=== PATIENT | female | born 1995 | race American Indian/Alaskan Native ===

== ENCOUNTER 2016-06-27 20:36 | Emergency (ER) | payer MEDICAID ==
[2016-06-27 22:18] VITALS: BP 135/83
[2016-06-27] MEDS ORDERED: ZOFRAN ODT PO ONE (22:26)
--- NOTE | 2016-06-27 22:26 | Emergency Department Report ---
Chief Complaint: Abdominal Pain Stated Complaint: VOMITING, DIARRHEA, HEADACHE Time Seen by Provider: 06/27/16 22:21 - HPI History of Present Illness: Patient states vomiting and diarrhea x 2 days, headache started today. Vomited x7 today, diarrhea x 4 today. No sick contacts, lmp 06/25/15. Denies abdominal pain at this time, states it has resolved. - ROS Review of Systems: All other systems unremarkable except documentation in HPI - Exam Vital Signs: Vital Signs 06/27/16 22:11 Temperature 99.5 F Pulse Rate 100 H Respiratory 16 Rate Blood Pressure 135/83 O2 Sat by Pulse 100 Oximetry Physical Exam: Gen: Female no apparent distress noted, ambulatory, nontoxic. Cardiovascular: Heart sounds present S1-S2, no murmur, gallop, edema or ectopy noted, 2+ pulses upper and lower extremities Respiratory: Chest symmetry with respirations, lungs clear to auscultate upper and lower lobes, respirations even and unlabored, no rales, rhonchi, crackles noted. Abdomen: bowel sounds present, soft, nondistended, nontender, no rigidity, guarding or rebound tenderness Psych: AxOx3, answers questions appropriately, mood full range, affect normal, normal speech and tone. MSE screening note: Focused history and physical exam performed. Due to findings the following was ordered: Patient seen by provider, will go to fast track for further evaluation. ED Medical Decision Making - Medical Decision Making Patient seen by provider, will go to fast track for further evaluation. ED Disposition for MSE Condition: Stable Instructions: Abdominal Pain (ED)
[2016-06-28 00:02] LABS: Bacteria,Urine 1+ /HPF (Negative); Bilirubin,Urine NEG (Negative); Blood,Urine NEG (Negative); Ketones,Urine NEG (Negative); Leukocyte Esterase,Urine LG (Negative); Mucus,Urine FEW /HPF; Nitrite,Urine NEG (Negative); Protein,Urine <15 mg/dL mg/dL (Negative); Urobilinogen,Urine < 2.0 mg/dL (<2.0)
[2016-06-28 01:57] LABS: Basophils % (Auto) 0.6 % (0.0-1.8); Eosinophils % (Auto) 0.6 % (0.0-4.3); Hematocrit 34.3 % (30.3-42.9); Hemoglobin 11.3 gm/dl (10.1-14.3); Mean Corpuscular HGB Conc 33 % (30-34); Mean Corpuscular Hemoglobin 27 pg (28-32); Mean Corpuscular Volume 81 fl (79-97); Platelet Count 303 K/mm3 (140-440); Red Blood Count 4.23 M/mm3 (3.65-5.03); Red Cell Distribution Width 15.5 % (13.2-15.2); White Blood Count 7.3 K/mm3 (4.5-11.0)
[2016-06-28 02:16] LABS: Alanine Aminotransferase 5 units/L (7-56); Albumin 4.4 g/dL (3.9-5); Albumin/Globulin Ratio 1.4 %; Alkaline Phosphatase 65 units/L (35-129); BUN/Creatinine Ratio 16.66; Bilirubin,Total 0.3 mg/dL (0.1-1.2); Blood Urea Nitrogen 10 mg/dL (7-17); Calcium 9.1 mg/dL (8.4-10.2); Carbon Dioxide 25 mmol/L (22-30); Glucose 83 mg/dL (65-100); Lipase 27 units/L (13-60); Total Protein 7.5 g/dL (6.3-8.2)
[2016-06-28 02:17] LABS: Chloride 101.2 mmol/L (98-107); Potassium 3.5 mmol/L (3.6-5.0); Sodium 139 mmol/L (137-145)
[2016-06-28 02:22] LABS: Anion Gap 16 mmol/L
--- NOTE | 2016-06-28 02:48 | Ultrasound Report ---
FINAL REPORT PROCEDURE: US OB transabdominal TECHNIQUE: Real-time transabdominal sonography of the uterus, placenta, amniotic fluid, adnexa, and fetus was performed with image documentation. Measurements were obtained to determine age/size. M-mode Doppler was used to document heartbeat. HISTORY: abdominal pain and COMPARISON: No prior studies are available for comparison. FINDINGS: CRL: 2.4mm, which corresponds to a gestational age of: 6weeks, 4 days. Yolk Sac: Normal. Embryonic Cardiac Activity: 103 beats per minute Gestational Sac: Normal. There is an adjacent 2.4 centimeter subchorionic hematoma. Right Ovary: 4.3 x 1.8 x 3.6 centimeters. There is a 2 centimeter hemorrhagic cyst. Left Ovary: Not identified. Estimated delivery date: 02/17/2017 Comment: Complete anatomic survey at 18-20 weeks suggested. IMPRESSION: 1. Single living intrauterine gestation at approximately 6 weeks and 4 days 2. EDC by US 02/17/2017. 3. There is a subchorionic hematoma. 4. There is a hemorrhagic corpus luteal cyst in the right ovary.
--- NOTE | 2016-06-28 02:48 | Ultrasound Report ---
FINAL REPORT PROCEDURE: US OB TRANSVAGINAL TECHNIQUE: Real-time transvaginal sonography of the uterus, placenta, amniotic fluid, adnexa, and fetus was performed with image documentation. Measurements were obtained to determine age/size. M-mode Doppler was used to document heartbeat. CPT 03049 HISTORY: abdominal pain and COMPARISON: No prior studies are available for comparison. FINDINGS: CRL: 2.4mm, which corresponds to a gestational age of: 6weeks, 4 days. Yolk Sac: Normal. Embryonic Cardiac Activity: 103 beats per minute Gestational Sac: Normal. There is an adjacent 2.4 centimeter subchorionic hematoma. Right Ovary: 4.3 x 1.8 x 3.6 centimeters. There is a 2 centimeter hemorrhagic cyst. Left Ovary: Not identified. Estimated delivery date: 02/17/2017 Comment: Complete anatomic survey at 18-20 weeks suggested. IMPRESSION: 1. Single living intrauterine gestation at approximately 6 weeks and 4 days 2. EDC by US 02/17/2017. 3. There is a subchorionic hematoma. 4. There is a hemorrhagic corpus luteal cyst in the right ovary.
--- NOTE | 2016-07-02 16:35 | ED Elopement Review ---
ED Pt Elopement review - Results review Lab results: Laboratory Tests 06/27/16 06/28/16 06/28/16 Unknown 01:34 01:34 WBC 7.3 RBC 4.23 Hgb 11.3 Hct 34.3 MCV 81 MCH 27 L MCHC 33 RDW 15.5 H Plt Count 303 Lymph % (Auto) 38.1 H [place] % (Auto) 8.7 H Eos % (Auto) 0.6 Baso % (Auto) 0.6 Lymph # 2.8 [place] # 0.6 Eos # 0.0 Baso # 0.0 Seg Neutrophils % 52.0 Seg Neutrophils # 3.8 Sodium 139 Potassium 3.5 L Chloride 101.2 Carbon Dioxide 25 Anion Gap 16 BUN 10 Creatinine 0.6 L Estimated GFR > 60 BUN/Creatinine Ratio 16.66 Glucose 83 Calcium 9.1 Total Bilirubin 0.3 AST 11 ALT 5 L Alkaline Phosphatase 65 Total Protein 7.5 Albumin 4.4 Albumin/Globulin Ratio 1.4 Lipase 27 HCG, Quant Urine Color Yellow Urine Turbidity Clear Urine pH 6.0 Ur Specific [place] 1.021 Urine Protein <15 mg/dl Urine Glucose (UA) Neg Urine Ketones Neg Urine Blood Neg Urine Nitrite Neg Ur Reducing Substances Not Reportable Urine Bilirubin Neg Urine Ictotest Not Reportable Urine Urobilinogen < 2.0 Ur Leukocyte Esterase Lg Urine WBC (Auto) 59.0 H Urine RBC (Auto) 4.0 U Epithel Cells (Auto) 3.0 Urine Bacteria (Auto) 1+ Urine Mucus Few Urine HCG, Qual Positive A Blood Type Ord Rhogam Gestat Weeks 06/28/16 06/28/16 01:34 01:34 WBC RBC Hgb Hct MCV MCH MCHC RDW Plt Count Lymph % (Auto) [place] % (Auto) Eos % (Auto) Baso % (Auto) Lymph # [place] # Eos # Baso # Seg Neutrophils % Seg Neutrophils # Sodium Potassium Chloride Carbon Dioxide Anion Gap BUN Creatinine Estimated GFR BUN/Creatinine Ratio Glucose Calcium Total Bilirubin AST ALT Alkaline Phosphatase Total Protein Albumin Albumin/Globulin Ratio Lipase HCG, Quant 61956 H Urine Color Urine Turbidity Urine pH Ur Specific [place] Urine Protein Urine Glucose (UA) Urine Ketones Urine Blood Urine Nitrite Ur Reducing Substances Urine Bilirubin Urine Ictotest Urine Urobilinogen Ur Leukocyte Esterase Urine WBC (Auto) Urine RBC (Auto) U Epithel Cells (Auto) Urine Bacteria (Auto) Urine Mucus Urine HCG, Qual Blood Type O POSITIVE Ord Rhogam Gestat Weeks Rh pos - Call Back decision Pt Call Back Decision: Pt to F/U with PMD (UTI)
== END 2016-06-28 01:35 | disposition left against medical advice (07) ==
LOC: ED 20:36
DX: R11.10 Vomiting, unspecified (principal); R19.7 Diarrhea, unspecified; R51 Headache; Z53.21 Procedure and treatment not carried out due to patient leaving prior to being seen by health care provider
CPT/HCPCS: 36415; 76801; 76817; 80053; 81001; 81025; 83690; 84702; 85025; 86900; 86901; Q0162

== ENCOUNTER 2016-07-03 21:33 | Emergency (ER) | payer MEDICAID ==
[2016-07-04 00:10] LABS: Bacteria,Urine 1+ /HPF (Negative); Bilirubin,Urine NEG (Negative); Blood,Urine MOD (Negative); Ketones,Urine 20 mg/dL (Negative); Leukocyte Esterase,Urine LG (Negative); Mucus,Urine 1+ /HPF; Nitrite,Urine NEG (Negative); Protein,Urine <15 mg/dL mg/dL (Negative); Urobilinogen,Urine < 2.0 mg/dL (<2.0)
[2016-07-04 00:17] LABS: Basophils % (Auto) 0.6 % (0.0-1.8); Eosinophils % (Auto) 0.9 % (0.0-4.3); Hematocrit 32.9 % (30.3-42.9); Hemoglobin 11.2 gm/dl (10.1-14.3); Mean Corpuscular HGB Conc 34 % (30-34); Mean Corpuscular Hemoglobin 28 pg (28-32); Mean Corpuscular Volume 82 fl (79-97); Platelet Count 295 K/mm3 (140-440); Red Blood Count 3.99 M/mm3 (3.65-5.03); Red Cell Distribution Width 15.6 % (13.2-15.2); White Blood Count 6.8 K/mm3 (4.5-11.0)
[2016-07-04 04:58] VITALS: BP 124/70
--- NOTE | 2016-07-04 07:14 | ED Elopement Review ---
ED Pt Elopement review - Results review Lab results: Laboratory Tests 07/03/16 07/03/16 07/03/16 23:41 23:52 23:52 WBC 6.8 RBC 3.99 Hgb 11.2 Hct 32.9 MCV 82 MCH 28 MCHC 34 RDW 15.6 H Plt Count 295 Lymph % (Auto) 35.1 H [place] % (Auto) 10.0 H Eos % (Auto) 0.9 Baso % (Auto) 0.6 Lymph # 2.4 [place] # 0.7 Eos # 0.1 Baso # 0.0 Seg Neutrophils % 53.4 Seg Neutrophils # 3.6 HCG, Quant 172006 H Urine Color Yellow Urine Turbidity Slightly-cloudy Urine pH 6.0 Ur Specific [place] 1.018 Urine Protein <15 mg/dl Urine Glucose (UA) Neg Urine Ketones 20 Urine Blood Mod Urine Nitrite Neg Urine Bilirubin Neg Urine Urobilinogen < 2.0 Ur Leukocyte Esterase Lg Urine WBC (Auto) 88.0 H Urine RBC (Auto) 6.0 U Epithel Cells (Auto) 9.0 Urine Bacteria (Auto) 1+ Urine Mucus 1+ Blood Type Antibody Screen 07/03/16 23:52 WBC RBC Hgb Hct MCV MCH MCHC RDW Plt Count Lymph % (Auto) [place] % (Auto) Eos % (Auto) Baso % (Auto) Lymph # [place] # Eos # Baso # Seg Neutrophils % Seg Neutrophils # HCG, Quant Urine Color Urine Turbidity Urine pH Ur Specific [place] Urine Protein Urine Glucose (UA) Urine Ketones Urine Blood Urine Nitrite Urine Bilirubin Urine Urobilinogen Ur Leukocyte Esterase Urine WBC (Auto) Urine RBC (Auto) U Epithel Cells (Auto) Urine Bacteria (Auto) Urine Mucus Blood Type O POSITIVE Antibody Screen Negative - Call Back decision Pt Call Back Decision: Call pt to return to ED [facility] (patient is , with vaginal bleeding, needs ultrasound and has a urinary tract infection needing antibiotics)
== END 2016-07-04 06:03 | disposition left against medical advice (07) ==
LOC: ED 21:33
DX: O46.90 Antepartum hemorrhage, unspecified, unspecified trimester (principal); O21.9 Vomiting of pregnancy, unspecified; Z3A.00 Weeks of gestation of pregnancy not specified; Z53.21 Procedure and treatment not carried out due to patient leaving prior to being seen by health care provider
CPT/HCPCS: 36415; 81001; 84702; 85025; 86850; 86900; 86901

== ENCOUNTER 2016-07-18 20:08 | Emergency (ER) | payer MEDICAID | END 2016-07-18 22:10 | disposition left against medical advice (07) | LOC: ED 20:08 | DX: Z53.21 Procedure and treatment not carried out due to patient leaving prior to being seen by health care provider (principal) ==

== ENCOUNTER 2016-08-21 17:17 | Emergency (ER) | payer MEDICAID ==
[2016-08-21 18:06] VITALS: BP 107/77
== END 2016-08-21 21:50 | disposition left against medical advice (07) ==
LOC: ED 17:17
DX: O26.892 Other specified pregnancy related conditions, second trimester (principal); R42 Dizziness and giddiness; Z3A.14 14 weeks gestation of pregnancy; Z53.21 Procedure and treatment not carried out due to patient leaving prior to being seen by health care provider

== ENCOUNTER 2016-11-08 20:36 | Outpatient (CLI) | payer MEDICAID ==
[2016-11-08] MEDS ORDERED: LACTATED RINGERS 500 ML IV ONE (21:06)
[2016-11-08 21:32] LABS: Bacteria,Urine 1+ /HPF (Negative); Bilirubin,Urine NEG (Negative); Blood,Urine NEG (Negative); Ketones,Urine TR mg/dL (Negative); Leukocyte Esterase,Urine TR (Negative); Mucus,Urine 1+ /HPF; Nitrite,Urine NEG (Negative); WBC,Urine < 1.0 /HPF (0.0-6.0)
[2016-11-08] MEDS ORDERED: TYLENOL PO ONE (21:42)
[2016-11-08 23:04] VITALS: BP 124/85
--- NOTE | 2016-11-08 23:21 | Ultrasound Report ---
FINAL REPORT EXAM: US OB LIMITED HISTORY: fall last night; placenta COMPARISONS: 06/28/2016 FINDINGS: Limited transabdominal grayscale, color Doppler and M-mode ultrasound evaluation of the 2nd/3rd trimester placenta Single living intrauterine with recorded cardiac activity of 155 beats per minute. Amniotic fluid volume is subjectively normal. Posterior placenta is without retroplacental hemorrhage or significant marginal cyst formation or other abnormality. IMPRESSION: Single living intrauterine . No focal placental abnormality. Consider additional imaging for worsening/persistent symptoms.
[2016-11-08] MEDS ORDERED: ZOFRAN IV ONE (23:22)
== END 2016-11-08 23:44 | disposition home or self-care (01) ==
LOC: TRG 20:36
PROVIDERS: ATTEND Obstetrics & Gynecology
DX: O26.892 Other specified pregnancy related conditions, second trimester (principal); Z3A.25 25 weeks gestation of pregnancy
CPT/HCPCS: 59025; 76815; 81001; 96360; 96374; J2405; J7120

== ENCOUNTER 2017-02-08 20:03 | Inpatient (IN) | payer MEDICAID ==
[2017-02-08 21:34] LABS: Hematocrit 26.3 % (30.3-42.9); Hemoglobin 8.1 gm/dl (10.1-14.3); Mean Corpuscular HGB Conc 31 % (30-34); Mean Corpuscular Hemoglobin 22 pg (28-32); Mean Corpuscular Volume 73 fl (79-97); Platelet Count 232 K/mm3 (140-440); Red Blood Count 3.61 M/mm3 (3.65-5.03); Red Cell Distribution Width 16.1 % (13.2-15.2); White Blood Count 8.5 K/mm3 (4.5-11.0)
[2017-02-08] MEDS ORDERED: PITOCin/NS 30 UNIT/500ML 30,000 MILLIUNITS/500 ML BAG IV ONE (21:45)
[2017-02-08] MEDS ORDERED: SUBLIMAZE IV PRN (21:46)
[2017-02-08] MEDS ORDERED: STADOL IV PRN (21:47)
[2017-02-08] MEDS ORDERED: LACTATED RINGERS 1,000 ML IV SCH (22:00)
--- NOTE | 2017-02-09 02:07 | History and Physical Report ---
History of Present Illness Date of examination: 02/09/17 History of present illness: 21 yo first trimester EDC 02/16/17 @ 39 weeks gestation presented to triage with SROM clear fluid @ 1945. First trimester entry into care at 7 weeks gestation. course complicated by hyperemesis with admission 07/13 for hydration, also positive for trichomonas with negative [place], +HSV2 with Valtrex at 36 weeks, +GBS UTI with negative [place], and iron BID. Past History Past Medical History: seizure (last seizure at 10 yo), other (anemia) Past Surgical History: tonsillectomy TECHNICAL ASSISTANT History: herpes, trichomonas Family/Genetic History: diabetes, heart disease, hypertension Social history: no significant social history, single - Obstetrical History Expected Date of Delivery: 02/16/17 Actual Gestation: 39 Week(s) 0 Day(s) : 6 Para: 3 Hx # Term Pregnancies: 3 Number of Pregnancies: 0 Induced : 2 Number of Living Children: 3 Medications and Allergies Allergies Allergy/AdvReac Type Severity Reaction Status Date / Time morphine Allergy Itching Verified 06/27/16 22:10 Home Medications Medication Instructions Recorded Confirmed Last Taken Type Vit-Fe Fumar-FA [ 1 tab PO QDAY 11/08/16 11/08/16 11/07/16 History Vitamin] Active Meds: Active Medications Butorphanol Tartrate (Stadol) 2 mg IV Q2H PRN PRN Reason: Labor Pain Fentanyl (Sublimaze) 100 mcg IV Q2HR PRN PRN Reason: Pain Lactated Ringer's (Lactated Ringers) 1,000 mls @ 125 mls/hr IV DIRECT JOSUE Last Admin: 02/08/17 23:40 Dose: 125 mls/hr Oxytocin/Sodium Chloride (Pitocin/Ns 30 Unit/500ml) 30,000 milliunits in 500 mls @ 2 mls/hr IV DIRECT ONE; 2 MILLIUNITS/MIN PRN Reason: Protocol Stop: 02/19/17 07:44 Last Titration: 02/09/17 01:59 Dose: 8 milliunits/min, 8 mls/hr Review of Systems All systems: negative Eyes: deferred Cardiovascular: high blood pressure Breasts: deferred Gastrointestinal: no nausea, no vomiting Genitourinary: leakage of fluid, contractions, no genital sores Neurological: no seizures, no headaches, no double vision, no loss of vision - Vital Signs Vital signs: Vital Signs Pulse BP 85 172/90 02/08/17 20:15 02/08/17 20:15 Temp Pulse Resp BP Pulse Ox 98.9 F 65 12 124/80 02/09/17 01:33 02/09/17 01:49 02/09/17 01:02/09/17 01:49 - Physical Exam Breasts: Positive: deferred Abdomen: Positive: normal appearance Genitourinary (Female): Positive: normal external genitalia, normal perenium. Negative: perineal/vulvar lesions - Obstetrical FHR: category 1 Uterine Contraction Monitor Mode: External Results Result Diagrams: 02/08/17 21:05 Abnormal lab results 02/08/17 Range/Units 21:05 RBC 3.61 L (3.65-5.03) M/mm3 Hgb 8.1 L (10.1-14.3) gm/dl Hct 26.3 L (30.3-42.9) % MCV 73 L (79-97) fl MCH 22 L (28-32) pg RDW 16.1 H (13.2-15.2) % All other labs normal. Assessment and Plan O: BP elevated 140-170/90-100 currently 120/80 A: IUP at 39 weeks gestation PROM at term +GBS Elevated BP Anemia P:PIH labs GBS prophylaxis Pitocin induction
[2017-02-09 02:09] LABS: Bacteria,Urine 3+ /HPF (Negative); Bilirubin,Urine NEG (Negative); Blood,Urine NEG (Negative); Ketones,Urine NEG (Negative); Leukocyte Esterase,Urine LG (Negative); Mucus,Urine FEW /HPF; Nitrite,Urine NEG (Negative); Protein,Urine <15 mg/dL mg/dL (Negative); Urobilinogen,Urine < 2.0 mg/dL (<2.0)
[2017-02-09] MEDS ORDERED: BRETHINE IVP PRN (02:09)
[2017-02-09] MEDS ORDERED: ePHEDrine SULFATE IV PRN ×2 (02:09→06:05)
[2017-02-09] MEDS ORDERED: BRETHINE SUB-Q PRN (02:09)
[2017-02-09] MEDS ORDERED: XYLOCAINE 2% INFILTRATI ONE (02:09)
[2017-02-09] MEDS ORDERED: POLYCILLIN/NS 2 GM/100 ML 2 GM/100 ML BAG IV ONE ×2 (02:09→02:14)
[2017-02-09] MEDS ORDERED: MINERAL OIL PO PRN (02:09)
[2017-02-09] MEDS ORDERED: MAGNESIUM SULFATE 4GM/100ML 4 GM/100 ML BAG IV ONE (02:22)
[2017-02-09 02:25] LABS: Alanine Aminotransferase 7 units/L (7-56); Blood Urea Nitrogen 5 mg/dL (7-17)
[2017-02-09 02:56] LABS: Lactate Dehydrogenase 191 units/L (91-180); Uric Acid 6.1 mg/dL (3.5-7.6)
[2017-02-09] MEDS ORDERED: MAGNESIUM SULFATE 40GM/1000ML 40 GM/1,000 ML BAG IV SCH (03:00)
[2017-02-09] MEDS ORDERED: PITOCin/NS 30 UNIT/500ML 30 UNITS/500 ML BAG IV SCH ×2 (03:00)
[2017-02-09] MEDS ORDERED: LACTATED RINGERS 1,000 ML IV SCH (03:00)
[2017-02-09] MEDS ORDERED: ePHEDrine SULFATE ONE (05:04)
[2017-02-09] MEDS ORDERED: BENADRYL PO ONE (05:12)
[2017-02-09] MEDS ORDERED: BENADRYL PO PRN (05:19)
[2017-02-09] MEDS ORDERED: NARCAN 2 MG/2 ML IV PRN (06:05)
--- NOTE | 2017-02-09 06:05 | Anesthesia Consultation ---
Anesthesia Consult and Med Hx Date of service: 02/09/17 - Airway Anesthetic Teeth Evaluation: Good ROM Head & Neck: Adequate Mental/Hyoid Distance: Adequate Intubation Access Assessment: Probably Good - Pre-Operative Health Status ASA Pre-Surgery Classification: ASA2, Emergency Proposed Anesthetic Plan: Epidural, Spinal - Pulmonary Hx Asthma: No COPD: No Hx Pneumonia: No - Cardiovascular System Hx Hypertension: No Hx Heart Attack/AMI: No - Central Nervous System Hx Seizures: No Hx Psychiatric Problems: Yes (bipolar) - Endocrine Hx Renal Disease: No Hx End Stage Renal Disease: No Hx Hypothyroidism: No Hx Hyperthyroidism: No - Hematic Hx Anemia: No Hx Sickle Cell Disease: No - Other Systems Hx Alcohol Use: No
[2017-02-09] MEDS ORDERED: fentaNYL-BUPIV 2 MCG/ML-0.125% 200 MCG/100 ML BAG EPIDURAL ONE (06:06)
[2017-02-09] MEDS: POLYCILLIN/NS 1 GM/50 ML 1 GM/50 ML BAG IV SCH ×4 (06:30→18:14)
[2017-02-09] MEDS: fentaNYL-BUPIV 2 MCG/ML-0.125% 200 MCG/100 ML BAG EPIDURAL SCH ×3 (06:46→20:14)
--- NOTE | 2017-02-09 10:05 | Event Note ---
Date: 02/09/17 Pt uncomfortable in current position and feels she needs to have a bowel movement. FHT Category II tracing. SVE /-4 unable to palpate presenting part. Ultrasound ordered to confirm vertex presentation.
--- NOTE | 2017-02-09 14:03 | Ultrasound Report ---
COMPLETE OB ULTRASOUND: Evaluate presentation and well-being. Gestation: [place] Heart Rate: 120 BPM Cervical length: Not observed cm (Normal > 3 cm) BPD9.0 cm = 36w 3d HC: 32.5 cm = 36 w 6 d AC: 32.5 cm = 36 w 1 d FL: 7.3 cm = 37 w 2 d HC/AC Ratio: 78.0 Cephalic Index: 1.01 Estimated Weight: 2963 grams LMP: 05/11/17 Clinical age = 39 w one d EDC: 02/15/17 US Gest. Age = 36 w 5 d EDC: 03/04/17 Impression: Limited evaluation with no complication identified.
[2017-02-09] MEDS ORDERED: CYTOTEC PR ONE (17:05)
[2017-02-09] MEDS ORDERED: BENADRYL IV ONE (19:58)
[2017-02-09] MEDS ORDERED: XYLOCAINE MPF 2% ONE (20:22)
[2017-02-09] MEDS ORDERED: NORMODYNE IV ONE (20:46)
--- NOTE | 2017-02-09 21:29 | Event Note ---
Date: 02/09/17 Pt feeling more pressure now with epidural. Category II tracing. SVE: 8.5/80/- 1. Continue increasing pitocin. Continue to monitor maternal and status.
[2017-02-09] MEDS: PITOCin/NS 20 UNIT/1000ML DRIP 20 UNITS/1,000 ML BAG IV SCH ×2 (22:02→23:05)
--- NOTE | 2017-02-09 22:20 | Procedure Note ---
OB Delivery Note - Delivery Date of Delivery: 02/09/17 Surgeon: TRISTA SPENCE Estimated blood loss: 500cc - Vaginal Delivery presentation: vertex Delivery position: OA Intrapartum events: PROM->1hr before delivery, preeclampsia, prolonged active phase, decreased FHT variability, uterine atony Delivery induction: oxytocin Delivery augmentation: pitocin Delivery monitor: external FHT, external uterine Route of delivery: Delivery placenta: spontaneous Delivery cord: 3 umbilical vessels Episiotomy: none Delivery laceration: none, other (periurethral abrasions-hemostatic ) Anesthesia: epidural Delivery comments: Patient progressed to complete/complete/worse. She delivered a viable male via spontaneous vaginal delivery over intact perineum under epidural anesthesia. Head delivered in PALOMA position, quickly followed by shoulders and body. placed on maternal abdomen and bulb suctioned. Cord clamped and cut and handed to nurse in attendance. Cord blood collected. Placenta delivered spontaneously (3 vessel cord, intact purposes. Vagina and perineum explored. Periurethral abrasions noted to be hemostatic. Uterus then became atonic with increased vaginal bleeding. Ms. approximately 100 g were placed per rectum along with bimanual massage (after glove change). Uterine fundus now firm. Estimated blood loss 500 mL. - Infant A at 1 minute: 8 at 5 minutes: 9 Gender: Male (2872g (6lb 5oz) @ 2157)
[2017-02-10] MEDS ORDERED: TYLENOL PO PRN (00:01)
[2017-02-10] MEDS ORDERED: LANSINOH TP PRN ×2 (00:01)
[2017-02-10] MEDS ORDERED: PITOCin/NS 20 UNIT/1000ML DRIP 20 UNITS/1,000 ML BAG IV SCH (00:01)
[2017-02-10] MEDS ORDERED: TUCKS PAD TP PRN (00:01)
[2017-02-10] MEDS ORDERED: MILK OF MAGNESIA PO PRN (00:01)
[2017-02-10] MEDS ORDERED: PHENERGAN PR PRN (00:01)
[2017-02-10] MEDS ORDERED: BENADRYL PO PRN (00:01)
[2017-02-10] MEDS ORDERED: PHENERGAN PO PRN (00:01)
[2017-02-10] MEDS ORDERED: DULCOLAX PR PRN (00:01)
[2017-02-10] MEDS ORDERED: APRESOLINE IV PRN (00:01)
[2017-02-10] MEDS ORDERED: SODIUM CHLORIDE FLUSH SYRINGE 10 ML IV PRN (00:01)
[2017-02-10] MEDS ORDERED: NORMODYNE IV PRN (00:01)
[2017-02-10] MEDS ORDERED: ZOFRAN IV PRN (00:01)
[2017-02-10] MEDS: NORCO 5/325 PO PRN ×3 (02:13→20:27)
[2017-02-10] MEDS: MOTRIN PO SCH ×2 (02:13→08:59)
[2017-02-10] MEDS: LACTATED RINGERS 1,000 ML IV SCH ×2 (02:35→11:23)
[2017-02-10] MEDS ORDERED: MAGNESIUM SULFATE 40GM/1000ML 40 GM/1,000 ML BAG IV SCH (03:00)
[2017-02-10] MEDS ORDERED: LACTATED RINGERS 1,000 ML IV SCH (03:00)
[2017-02-10] MEDS ORDERED: FEOSOL PO SCH (10:00)
[2017-02-10] MEDS: NORMODYNE PO SCH ×2 (10:01→22:02)
[2017-02-10] MEDS: PRENATAL VITAMIN PO SCH (10:10)
[2017-02-10 12:28] LABS: Hemoglobin 6.1 gm/dl (10.1-14.3)
[2017-02-10 12:41] LABS: Hematocrit 19.9 % (30.3-42.9)
[2017-02-10] MEDS ORDERED: NACL 0.9% 500 ML 500 ML IV SCH (15:10)
--- NOTE | 2017-02-10 15:12 | Progress Note ---
Assessment and Plan A: PPD#1 s/p at term Severe Anemia Severe Preeclampsia on Magnesium Sulfate seizure prophylaxis P: Transfuse 2 units of PRBCs Continue magnesium sulfate for 24 hrs after delivery Closely monitor clinical status Subjective - Subjective Date of service: 02/10/17 Principal diagnosis: Severe Preeclampsia, Uterine Atony, Acute on chronic Anemia Interval history: Pt complains of "ear stuffiness" this morning. Otherwise she feels weak. She c/ o abdominal cramping as well. Patient reports: appetite normal, pain poorly controlled, no voiding normally ( bender in place ), no ambulating normally : doing well Objective - Vital Signs Latest vital signs: Vital Signs Temp Pulse Resp BP BP Pulse Ox 02/10/17 14:04 99 F 86 18 135/93 02/10/17 12:30 98.6 F 90 19 119/63 02/10/17 10:11 98.9 F 86 14 130/85 98 02/10/17 10:01 86 130/85 02/10/17 08:35 98.7 F 99 H 19 113/87 02/10/17 04:09 98.7 F 90 18 127/84 02/10/17 02:00 99.8 F H 100 H 20 117/71 02/10/17 00:18 98.1 F 96 H 20 137/85 02/09/17 23:23 96 H 152/71 02/09/17 23:22 88 152/95 02/09/17 23:08 95 H 150/80 02/09/17 23:03 82 154/85 02/09/17 23:02 88 99 02/09/17 23:00 18 02/09/17 22:57 82 100 02/09/17 22:52 103 H 99 02/09/17 22:47 87 99 02/09/17 22:42 87 97 02/09/17 22:38 98 H 141/89 02/09/17 22:37 98 H 100 02/09/17 22:32 92 H 99 02/09/17 22:27 102 H 99 02/09/17 22:23 95 H 143/92 02/09/17 22:22 90 100 02/09/17 22:17 92 H 98 02/09/17 22:12 94 H 100 02/09/17 22:10 78 L 02/09/17 22:09 97 H 152/69 02/09/17 22:08 93 H 186/87 02/09/17 22:06 84 02/09/17 22:05 82 L 02/09/17 22:00 102 H 100 02/09/17 21:55 108 H 100 02/09/17 21:53 96 H 169/107 02/09/17 21:50 90 100 02/09/17 21:45 98 H 100 02/09/17 21:40 98 H 100 02/09/17 21:39 82 168/91 02/09/17 21:35 93 H 100 02/09/17 21:30 94 H 100 02/09/17 21:25 95 H 99 02/09/17 21:24 95 H 187/105 02/09/17 21:20 100 H 100 02/09/17 21:15 94 H 96 02/09/17 21:10 92 H 95 02/09/17 21:08 91 H 161/94 02/09/17 21:05 97 H 95 02/09/17 21:02 91 H 144/95 02/09/17 21:00 89 95 02/09/17 20:57 92 H 143/88 66 L 02/09/17 20:55 107 H 99 02/09/17 20:50 111 H 94 02/09/17 20:45 113 H 99 02/09/17 20:44 101 H 158/117 02/09/17 20:41 79 81 L 02/09/17 20:40 111 H 99 02/09/17 20:35 101 H 100 02/09/17 20:33 100 H 181/108 02/09/17 20:30 106 H 100 02/09/17 20:25 116 H 100 02/09/17 20:24 116 H 158/108 02/09/17 20:20 113 H 100 02/09/17 20:02 80 L 02/09/17 19:55 98.6 F 20 02/09/17 19:53 35 L 100 02/09/17 19:48 32 L 96 02/09/17 19:46 89 149/93 02/09/17 19:42 80 L 02/09/17 19:34 79 L 02/09/17 19:30 99 H 98 02/09/17 19:25 89 100 09/15/17 19:23 25 L 76 L 02/09/17 19:20 94 H 99 02/09/17 19:15 98 H 100 02/09/17 19:14 109 H 90 02/09/17 19:10 101 H 100 02/09/17 19:07 83 L 02/09/17 19:05 106 H 100 02/09/17 19:00 98 H 100 02/09/17 18:55 110 H 100 02/09/17 18:50 104 H 98 02/09/17 18:45 104 H 96 02/09/17 18:41 108 H 86 02/09/17 18:40 112 H 97 02/09/17 18:35 98 H 89 02/09/17 18:34 66 L 02/09/17 18:30 108 H 100 02/09/17 18:25 96 H 100 02/09/17 18:20 99 H 99 02/09/17 18:16 92 H 149/96 02/09/17 18:15 94 H 99 02/09/17 18:10 95 H 100 02/09/17 18:05 89 97 02/09/17 18:00 101 H 100 02/09/17 17:55 91 H 98 02/09/17 17:50 94 H 99 02/09/17 17:45 96 H 100 02/09/17 17:43 116 H 89 02/09/17 17:40 92 H 100 02/09/17 17:35 85 98 02/09/17 17:32 93 H 141/86 02/09/17 17:30 90 100 02/09/17 17:29 98.4 F 18 02/09/17 17:25 107 H 99 02/09/17 17:20 100 H 100 02/09/17 17:15 59 L 81 L 02/09/17 17:14 79 L 02/09/17 17:08 89 100 02/09/17 17:03 96 H 100 02/09/17 16:58 88 100 02/09/17 16:53 101 H 99 02/09/17 16:48 109 H 65 L 02/09/17 16:47 104 H 148/96 86 02/09/17 16:43 105 H 100 02/09/17 16:38 100 H 100 02/09/17 16:35 79 L 02/09/17 16:31 92 H 98 02/09/17 16:29 75 78 L 02/09/17 16:26 84 96 02/09/17 16:21 94 H 98 02/09/17 16:18 98 H 89 02/09/17 16:16 86 99 02/09/17 16:11 91 H 98 02/09/17 16:06 92 H 99 02/09/17 16:02 90 137/86 02/09/17 16:01 91 H 96 02/09/17 15:58 91 H 84 02/09/17 15:56 99 H 99 02/09/17 15:51 90 96 02/09/17 15:46 94 H 100 02/09/17 15:41 102 H 99 02/09/17 15:40 92 H 83 L 02/09/17 15:36 103 H 96 02/09/17 15:31 101 H 98 02/09/17 15:28 103 H 56 L 02/09/17 15:26 95 H 98 02/09/17 15:21 102 H 97 02/09/17 15:20 98.1 F 18 Intake and Output 02/10/17 02/10/17 02/10/17 06:59 14:59 22:59 Intake Total 480 1480 Output Total 2150 1700 Balance -1670 -220 Intake: IV 880 Lactated Ringers 1,000 ml 880 @ 100 mls/hr IV DIRECT JOSUE Rx#:[id number] Oral 240 600 Intake, Free Water 240 Output: Urine 2150 1700 Indwelling Catheter 2150 1700 Other: Total, Intake Amount 120 240 Total, Output Amount 500 600 - Exam Breasts: Present: deferred Cardiovascular: Present: Regular rate Lungs: Present: Clear to auscultation Abdomen: Present: soft Uterus: Present: firm, fundal height at umbilicus Extremities: Present: normal - Labs Labs: Abnormal lab results 02/09/17 02/10/17 02/10/17 Range/Units 20:11 04:28 12:05 Hgb 6.1 L (10.1-14.3) gm/dl Hct 19.9 L* D (30.3-42.9) % Magnesium 4.60 H 4.50 H (1.7-2.3) mg/dL 02/10/17 Range/Units 12:05 Hgb (10.1-14.3) gm/dl Hct (30.3-42.9) % Magnesium 4.30 H (1.7-2.3) mg/dL
[2017-02-10] MEDS: MOTRIN PO PRN (16:49)
[2017-02-10] MEDS ORDERED: NACL 0.9% 1000 ML 1,000 ML IV SCH (20:00)
--- NOTE | 2017-02-10 22:01 | Event Note ---
Date: 02/10/17 Called by pt's nurse that she is crying because she does not want a blood transfusion. Pt now declines transfusion and desires iron therapy. Ferrous sulfate TID initiated. Continue to monitor clinical status.
[2017-02-10] MEDS: FEOSOL PO SCH (22:03)
[2017-02-10] MEDS ORDERED: M-M-R II VACCINE SUB-Q ONE (22:22)
[2017-02-11] MEDS: MOTRIN PO PRN (02:52)
[2017-02-11] MEDS: PERCOCET 5/325 PO PRN ×3 (02:52→18:45)
[2017-02-11] MEDS ORDERED: BOOSTRIX IM ONE (06:00)
[2017-02-11] MEDS: FEOSOL PO SCH ×2 (08:49→19:56)
[2017-02-11] MEDS: PRENATAL VITAMIN PO SCH (09:21)
[2017-02-11] MEDS: COLACE PO SCH ×2 (09:22→22:38)
[2017-02-11] MEDS: NORMODYNE PO SCH (09:22)
[2017-02-11] MEDS ORDERED: NORMODYNE PO SCH ×3 (10:00→22:00)
--- NOTE | 2017-02-11 12:16 | Progress Note ---
Assessment and Plan A: PPD#2 s/p at term Severe Anemia; offered blood transfusion yesterday; initially declined but now desires transfusion Severe Preeclampsia s/p Magnesium Sulfate seizure prophylaxis for 24 hrs after delivery P: Transfuse 2 units of PRBCs today Hemoglobin and Hematocrit 4 hrs after transfusion Closely monitor clinical status Subjective - Subjective Date of service: 02/11/17 Principal diagnosis: Severe Preeclampsia, Uterine Atony, Acute on chronic Anemia Interval history: Pt reports that her abdominal pain is improved with Percocet. She remains anxious about blood transfusion but want to "get it out of the way" She does report weakness and dizziness upon ambulation. Patient reports: appetite normal, voiding normally, dizzy ambulation, pain well controlled, no nauseated [place]: doing well Objective - Vital Signs Latest vital signs: Vital Signs Temp Pulse Resp BP BP 02/11/17 09:30 144/94 02/11/17 09:22 144/94 02/11/17 08:50 98.3 F 73 18 144/94 02/11/17 02:43 98.9 F 95 H 125/80 02/10/17 22:51 98.9 F 99 H 18 130/84 02/10/17 22:02 111 H 144/86 02/10/17 20:40 99.8 F H 111 H 18 144/86 02/10/17 16:30 98.8 F 85 19 123/81 02/10/17 14:04 99 F 86 18 135/93 02/10/17 12:30 98.6 F 90 19 119/63 Intake and Output 02/10/17 02/11/17 02/11/17 22:59 06:59 14:59 Intake Total 600 180 240 Output Total 2900 550 Balance -2300 -370 240 Intake: Oral 240 240 Intake, Free Water 360 180 Output: Urine 2900 550 Indwelling Catheter 2900 Void 550 Other: Total, Intake Amount 240 240 Total, Output Amount 500 200 # Voids Void 1 - Exam Breasts: Present: deferred Cardiovascular: Present: Regular rate Lungs: Present: Clear to auscultation Abdomen: Present: soft Uterus: Present: firm, fundal height at umbilicus Extremities: Present: normal - Labs Labs: Abnormal lab results 02/08/17 02/10/17 02/10/17 Range/Units 21:05 12:05 12:05 Hgb 6.1 L (10.1-14.3) gm/dl Hct 19.9 L* D (30.3-42.9) % Magnesium 4.30 H (1.7-2.3) mg/dL Crossmatch See Detail 02/10/17 Range/Units 18:38 Hgb (10.1-14.3) gm/dl Hct (30.3-42.9) % Magnesium 4.30 H (1.7-2.3) mg/dL Crossmatch
[2017-02-11 13:51] LABS: Hemoglobin 5.8 gm/dl (10.1-14.3)
[2017-02-11 13:52] LABS: Hematocrit 18.7 % (30.3-42.9)
[2017-02-11 22:45] VITALS: BP 120/90
[2017-02-12 00:17] LABS: Hemoglobin 8.2 gm/dl (10.1-14.3)
[2017-02-12 00:26] LABS: Hematocrit 25.7 % (30.3-42.9)
[2017-02-12] MEDS: MOTRIN PO PRN (04:38)
--- NOTE | 2017-02-12 05:24 | Event Note ---
Date: 02/12/17 Received call at 0511 from pt's nurse that pt and her mother are dissatisfied with her care and want to be discharged now. Pt had appropriate rise in hemoglobin and hematocrit after blood transfusion. Plan to discharge pt with follow up in 1 week in office.
--- NOTE | 2017-02-12 05:25 | Discharge Summary ---
Providers - Providers Date of Admission: 02/09/17 21:50 Date of discharge: 02/12/17 Attending physician: PAUL SALEEM MD 02/10/17 00:01 Consult to Milliner Helper [CONS] Routine Reason For Exam: assistance with , SNS Primary care physician: PAUL SALEEM MD Hospitalization Reason for admission: rupture of membranes, other (Severe Preeclampsia) Delivery: Procedure details: Please see delivery note. Episiotomy: none Laceration: other (periurethral abradions, hemostati) Other procedures: none complications: uterine atony Discharge diagnosis: IUP at term delivered [place] baby: male Hospital course: Pt was admitted for rupture of membranes and was found to have severe preeclampsia. She received magnesium sulfate for seizure prophylaxis and underwent induction of labor. She went on to have a vaginal delivery complicated by uterine atony. She was offered blood transfusion which she initially accepted, refused then ultimately accepted. She had appropriate rise in her H/H. The remainder of her course was uncomplicated and she met discharge criteria on PPD#3. She will follow up in the office in 1 week for blood pressure check. Condition at discharge: Stable Disposition: - TO HOME OR SELFCARE - Discharge Diagnoses (1) Chronic anemia Status: Acute (2) atony of uterus with hemorrhage Status: Acute (3) Severe preeclampsia Status: Acute Qualifiers: Trimester: third trimester Qualified Code(s): O14.13 - Severe pre-eclampsia , third trimester (4) Term of male Status: Acute Plan - Discharge Medications Prescriptions: Docusate Sodium [Colace] 100 mg PO BID PRN #60 capsule PRN Reason: Constipation Ferrous Sulfate [Feosol 325 MG tab] 325 mg PO TID #90 tablet HYDROcodone/APAP 5-325 [[place] 5/325] 1 each PO Q6HR PRN #30 tablet PRN Reason: Pain Ibuprofen [Motrin] 800 mg PO Q8HR PRN #30 tablet PRN Reason: Pain Labetalol [Normodyne TAB] 200 mg PO BID #60 tablet oxyCODONE /ACETAMINOPHEN [Percocet 5/325] 1 tab PO Q6HR PRN #30 tablet PRN Reason: Pain - Provider Discharge Summary Activity: routine, no sex for 6 weeks, no heavy lifting 4 weeks, no strenuous exercise Diet: routine Instructions: routine Additional instructions: [] Smoking cessation referral if applicable(refer to patient education folder for contact #) [] Refer to [facility]'s [facility] Booklet Call your doctor immediately for: * Fever > 100.5 * Heavy vaginal bleeding ( >1 pad per hour) * Severe persistent headache * Shortness of breath * Reddened, hot, painful area to leg or breast * Drainage or odor from incision. * Keep incision clean and dry at all times and follow doctor's instructions regarding bathing/showering If you want your son circumcised, please call the office for an appt with Martha before he is one month old. - Follow up plan Follow up: MARTHA SHI CNM [Advanced Practice Nurse] - 02/19/17 (please call to schedule appt with Martha)
== END 2017-02-12 07:00 | disposition home or self-care (01) | DRG 774 ==
LOC: TRG 20:03 → LD 20:08 → TRG 02-09 21:45 → LD 02-09 21:50 → OB 02-09 23:49
PROVIDERS: ADMIT Obstetrics & Gynecology; ATTEND Obstetrics & Gynecology
PROC: 10E0XZZ Delivery of Products of Conception, External Approach (ICD-10-PCS; principal; 2017-02-09)
PROC: 3E0R3CZ (ICD-10-PCS; 2017-02-09)
PROC: 00HU33Z Insertion of Infusion Device into Spinal Canal, Percutaneous Approach (ICD-10-PCS; 2017-02-09)
PROC: 3E033VJ Introduction of Other Hormone into Peripheral Vein, Percutaneous Approach (ICD-10-PCS; 2017-02-09)
PROC: 3E0234Z Introduction of Serum, Toxoid and Vaccine into Muscle, Percutaneous Approach (ICD-10-PCS; 2017-02-11)
PROC: 30233N1 Transfusion of Nonautologous Red Blood Cells into Peripheral Vein, Percutaneous Approach (ICD-10-PCS; 2017-02-11)
DX: O14.14 Severe pre-eclampsia complicating childbirth (principal); O42.02 Full-term premature rupture of membranes, onset of labor within 24 hours of rupture; O76 Abnormality in fetal heart rate and rhythm complicating labor and delivery; O99.02 Anemia complicating childbirth; D64.9 Anemia, unspecified; O71.82 Other specified trauma to perineum and vulva; O99.824 Streptococcus B carrier state complicating childbirth; O98.52 Other viral diseases complicating childbirth; B00.9 Herpesviral infection, unspecified; O75.3 Other infection during labor; O63.9 Long labor, unspecified; O62.2 Other uterine inertia; F31.9 Bipolar disorder, unspecified; O99.354 Diseases of the nervous system complicating childbirth; Z37.0 Single live birth; Z23 Encounter for immunization; Z3A.39 39 weeks gestation of pregnancy; Z83.3 Family history of diabetes mellitus; Z82.49 Family history of ischemic heart disease and other diseases of the circulatory system
CPT/HCPCS: 36415; 76816; 81001; 82565; 83615; 83735; 84450; 84460; 84520; 84550; 85014; 85018; 85027; 86592; 86850; 86900; 86901; 86920; 88307; J0290; J0595; J1200; J2590; J3010; J3475; J7030; J7120; P9016

== ENCOUNTER 2017-02-12 14:31 | Emergency (ER) | payer MEDICAID ==
--- NOTE | 2017-02-12 15:04 | Emergency Department Report ---
Stated Complaint: BLOOD LOSS Time Seen by Provider: 02/12/17 15:00 - HPI History of Present Illness: PT states she just had vaginal delivery on 02-09-17. PT states she had a blood transfusion yesterday for her blood loss. PT states she was discharged without seeing her MD. PT states she went home and started sweating. PT states she is vaginally bleeding with blood clots. - ROS Review of Systems: + fatigue + vaginal bleeding - Exam Physical Exam: PT alert and appropriate. abd soft and rounded, lower abd tender MSE screening note: Focused history and physical exam performed. Due to findings the following was ordered: labs ED Disposition for MSE Condition: Stable
[2017-02-12 15:06] VITALS: BP 144/91
[2017-02-12 15:47] LABS: Basophils % (Auto) 0.7 % (0.0-1.8); Eosinophils % (Auto) 2.2 % (0.0-4.3); Hematocrit 27.9 % (30.3-42.9); Hemoglobin 9.1 gm/dl (10.1-14.3); Mean Corpuscular HGB Conc 33 % (30-34); Mean Corpuscular Volume 77 fl (79-97); Platelet Count 261 K/mm3 (140-440); Red Blood Count 3.64 M/mm3 (3.65-5.03); Red Cell Distribution Width 18.6 % (13.2-15.2); White Blood Count 9.4 K/mm3 (4.5-11.0)
[2017-02-12 15:52] LABS: Mean Corpuscular Hemoglobin 25 pg (28-32)
[2017-02-12 16:01] LABS: Anion Gap 19 mmol/L; Blood Urea Nitrogen 10 mg/dL (7-17); Calcium 8.5 mg/dL (8.4-10.2); Carbon Dioxide 23 mmol/L (22-30); Chloride 100.8 mmol/L (98-107); Glucose 89 mg/dL (65-100); Potassium 4.9 mmol/L (3.6-5.0); Sodium 138 mmol/L (137-145)
== END 2017-02-12 15:10 | disposition left against medical advice (07) ==
LOC: ED 14:31
DX: N93.8 Other specified abnormal uterine and vaginal bleeding (principal); R53.83 Other fatigue; Z88.8 Allergy status to other drugs, medicaments and biological substances; Z53.21 Procedure and treatment not carried out due to patient leaving prior to being seen by health care provider
CPT/HCPCS: 36415; 80048; 85025; 86850; 86900; 86901

== ENCOUNTER 2017-04-13 17:01 | Emergency (ER) | payer MEDICAID ==
[2017-04-13 19:43] LABS: Hematocrit 41.9 % (30.3-42.9); Hemoglobin 13.9 gm/dl (10.1-14.3); Mean Corpuscular HGB Conc 33 % (30-34); Mean Corpuscular Hemoglobin 27 pg (28-32); Mean Corpuscular Volume 83 fl (79-97); Platelet Count 322 K/mm3 (140-440); Red Blood Count 5.06 M/mm3 (3.65-5.03); White Blood Count 8.5 K/mm3 (4.5-11.0)
[2017-04-13 20:02] LABS: Anion Gap 17 mmol/L; BUN/Creatinine Ratio 15; Blood Urea Nitrogen 12 mg/dL (7-17); Calcium 9.8 mg/dL (8.4-10.2); Carbon Dioxide 27 mmol/L (22-30); Chloride 100.5 mmol/L (98-107); Glucose 95 mg/dL (65-100); Potassium 3.7 mmol/L (3.6-5.0); Sodium 141 mmol/L (137-145)
[2017-04-13 21:28] LABS: Bacteria,Urine 2+ /HPF (Negative); Bilirubin,Urine NEG (Negative); Blood,Urine LG (Negative); Ketones,Urine NEG (Negative); Leukocyte Esterase,Urine TR (Negative); Mucus,Urine FEW /HPF; Nitrite,Urine NEG (Negative); Urobilinogen,Urine < 2.0 mg/dL (<2.0); WBC,Urine < 1.0 /HPF (0.0-6.0)
[2017-04-13 21:51] LABS: Blastocytes % (Manual) 0 %; Eosinophils % (Manual) 0 % (0.0-4.3)
[2017-04-13 21:52] LABS: Diff Status Complete; Platelet Estimate Consistent w Auto; Poikilocytosis Few
[2017-04-13 23:30] VITALS: BP 124/94
--- NOTE | 2017-04-13 23:35 | Emergency Department Report ---
ED General Adult HPI - General Chief complaint: Medical Clearance Stated complaint: HYPERTENSION Time Seen by Provider: 04/13/17 23:26 Source: patient, RN notes reviewed, old records reviewed Mode of arrival: Ambulatory Limitations: No Limitations - History of Present Illness Initial comments: This is a 22-year-old female. The patient is previously known to this provider. Patient presents to the ER for medical clearance after blood pressure readings at home. She takes labetalol 200 mg twice daily. She reports that she primarily presents to the ER because her blood pressure was high and low. She reports a reading at home that was 167/115 mmHg, and the reports another reading of 64/48. Patient is 2 months . Her last menstrual period was earlier on this week. On review of systems, the patient does admits to headache and chest pressure. The headache is global and throbbing. It is not sudden or thunderclap in nature. It is not maximum intensity. There is no neck pain and there is no neck stiffness. There is no abdominal pain. She also admits to chest pressure. The chest pressure is intermittent. It has been present since Sunday. It does not radiate to the back, arms and neck. There is no nausea, vomiting or diaphoresis. There is no leg pain. There is no leg swelling. Patient reports she does not take oral contraceptive tablets. No recent aspirin use or cocaine use. -: Gradual Location: chest Quality: aching Consistency: intermittent Improves with: none Worsens with: none Associated Symptoms: chest pain, headaches, weakness. denies: confusion - Related Data Home Medications Medication Instructions Recorded Confirmed Last Taken Vit-Fe Fumar-FA [ 1 tab PO QDAY 11/08/16 02/10/17 11/07/16 Vitamin] Previous Rx's Medication Instructions Recorded Last Taken Type Docusate Sodium [Colace] 100 mg PO BID PRN #60 capsule 02/10/17 Unknown Rx Ferrous Sulfate [Feosol 325 MG tab] 325 mg PO TID #90 tablet 02/10/17 Unknown Rx HYDROcodone/APAP 5-325 [[place] 1 each PO Q6HR PRN #30 tablet 02/10/17 Unknown Rx 5/325] Ibuprofen [Motrin] 800 mg PO Q8HR PRN #30 tablet 02/10/17 Unknown Rx Labetalol [Normodyne TAB] 200 mg PO BID #60 tablet 02/11/17 Unknown Rx oxyCODONE /ACETAMINOPHEN [Percocet 1 tab PO Q6HR PRN #30 tablet 02/11/17 Unknown Rx 5/325] Allergies Allergy/AdvReac Type Severity Reaction Status Date / Time morphine Allergy Itching Verified 06/27/16 22:10 ED Review of Systems ROS: Stated complaint: HYPERTENSION Other details as noted in HPI Constitutional: denies: fever Eyes: denies: vision change Respiratory: denies: cough Cardiovascular: chest pain Gastrointestinal: denies: abdominal pain Genitourinary: denies: dysuria Musculoskeletal: denies: back pain Skin: denies: lesions Neurological: weakness Psychiatric: anxiety ED Past Medical Hx - Past Medical History Hx Hypertension: No Hx CVA: No Hx Heart Attack/AMI: No Hx Congestive Heart Failure: No Hx Diabetes: No Hx Deep Vein Thrombosis: No Hx Renal Disease: No Hx Sickle Cell Disease: No Hx Seizures: No Hx Kidney Stones: No Hx Psychiatric Treatment: No Hx Asthma: No Hx COPD: No Hx Dementia: No Hx HIV: No Additional medical history: vaginal delivery x 3, x 1 - Surgical History Additional Surgical History: tonsilectomy - Social History Smoking Status: Never Smoker Substance Use Type: None - Medications Home Medications: Home Medications Medication Instructions Recorded Confirmed Last Taken Type Vit-Fe Fumar-FA [ 1 tab PO QDAY 11/08/16 02/10/17 11/07/16 History Vitamin] Docusate Sodium [Colace] 100 mg PO BID PRN #60 capsule 02/10/17 Unknown Rx Ferrous Sulfate [Feosol 325 MG tab] 325 mg PO TID #90 tablet 02/10/17 Unknown Rx HYDROcodone/APAP 5-325 [[place] 1 each PO Q6HR PRN #30 tablet 02/10/17 Unknown Rx 5/325] Ibuprofen [Motrin] 800 mg PO Q8HR PRN #30 tablet 02/10/17 Unknown Rx Labetalol [Normodyne TAB] 200 mg PO BID #60 tablet 02/11/17 Unknown Rx oxyCODONE /ACETAMINOPHEN [Percocet 1 tab PO Q6HR PRN #30 tablet 02/11/17 Unknown Rx 5/325] ED Physical Exam - General Limitations: No Limitations General appearance: alert, in no apparent distress - Head Head exam: Present: atraumatic, normocephalic - Eye Eye exam: Present: normal appearance, EOMI, other (visual acuity intact to finger counting, color perception, reading at a close distance). Absent: nystagmus - ENT ENT exam: Present: normal exam, normal orophraynx, mucous membranes moist, normal external ear exam - Neck Neck exam: Present: normal inspection, full ROM - Respiratory Respiratory exam: Present: normal lung sounds bilaterally. Absent: respiratory distress, chest wall tenderness - Cardiovascular Cardiovascular Exam: Present: regular rate, normal rhythm, normal heart sounds. Absent: bradycardia, tachycardia, irregular rhythm, systolic murmur, diastolic murmur, rubs, gallop - GI/Abdominal GI/Abdominal exam: Present: soft, normal bowel sounds. Absent: distended, tenderness, guarding, rebound, rigid, pulsatile mass - Extremities Exam Extremities exam: Present: normal inspection, full ROM, normal capillary refill. Absent: pedal edema, joint swelling, calf tenderness - Back Exam Back exam: Present: normal inspection, full ROM. Absent: tenderness, CVA tenderness (R), paraspinal tenderness, vertebral tenderness - Neurological Exam Neurological exam: Present: alert, oriented X3, normal gait, other (Extraocular movements intact. Tongue midline. No facial droop. Facial sensation intact to light touch in the V1, V2, V3 distribution bilaterally. 5 and 5 strength in 4 extremities.. Sensation is intact to light touch in 4 extremities.). Absent : motor sensory deficit - Psychiatric Psychiatric exam: Present: normal affect, normal mood - Skin Skin exam: Present: warm, dry, intact, normal color. Absent: rash ED Course Vital Signs 04/13/17 04/13/17 18:58 23:30 Temperature 99.0 F Pulse Rate 84 Respiratory 20 Rate Blood Pressure 117/88 Blood Pressure 124/94 [Left] O2 Sat by Pulse 99 Oximetry ED Medical Decision Making - Lab Data Result diagrams: 04/13/17 19:20 04/13/17 19:20 Vital Signs 04/13/17 04/13/17 18:58 23:30 Temperature 99.0 F Pulse Rate 84 Respiratory 20 Rate Blood Pressure 117/88 Blood Pressure 124/94 [Left] O2 Sat by Pulse 99 Oximetry Lab Results 04/13/17 04/13/17 04/13/17 Range/Units 19:20 19:20 20:18 WBC 8.5 (4.5-11.0) K/mm3 RBC 5.06 H (3.65-5.03) M/mm3 Hgb 13.9 (10.1-14.3) gm/dl Hct 41.9 (30.3-42.9) % MCV 83 (79-97) fl MCH 27 L (28-32) pg MCHC 33 (30-34) % RDW 20.0 H (13.2-15.2) % Plt Count 322 (140-440) K/mm3 Add Manual Diff Complete Total Counted 100 Seg Neuts % (Manual) 69.0 (40.0-70.0) % Band Neutrophils % 0 % Lymphocytes % (Manual) 26.0 (13.4-35.0) % Reactive Lymphs % (Man) 0 % Monocytes % (Manual) 3.0 (0.0-7.3) % Eosinophils % (Manual) 0 (0.0-4.3) % Basophils % (Manual) 2.0 H (0.0-1.8) % Metamyelocytes % 0 % Myelocytes % 0 % Promyelocytes % 0 % Blast Cells % 0 % Nucleated RBC % Not Reportable Seg Neutrophils # Man 5.9 (1.8-7.7) K/mm3 Band Neutrophils # 0.0 K/mm3 Lymphocytes # (Manual) 2.2 (1.2-5.4) K/mm3 Abs React Lymphs (Man) 0.0 K/mm3 Monocytes # (Manual) 0.3 (0.0-0.8) K/mm3 Eosinophils # (Manual) 0.0 (0.0-0.4) K/mm3 Basophils # (Manual) 0.2 H (0.0-0.1) K/mm3 Metamyelocytes # 0.0 K/mm3 Myelocytes # 0.0 K/mm3 Promyelocytes # 0.0 K/mm3 Blast Cells # 0.0 K/mm3 WBC Morphology Not Reportable Hypersegmented Neuts Not Reportable Hyposegmented Neuts Not Reportable Hypogranular Neuts Not Reportable Smudge Cells Not Reportable Toxic Granulation Not Reportable Toxic Vacuolation Not Reportable Dohle Bodies Not Reportable Pelger-Huet Anomaly Not Reportable Kal Rods Not Reportable Platelet Estimate Consistent w auto Clumped Platelets Not Reportable Plt Clumps, EDTA Not Reportable Large Platelets Not Reportable Giant Platelets Not Reportable Platelet Satelliting Not Reportable Plt Morphology Comment Not Reportable RBC Morphology Not Reportable Dimorphic RBCs Not Reportable Polychromasia Not Reportable Hypochromasia Not Reportable Poikilocytosis Few Anisocytosis Not Reportable Microcytosis Not Reportable Macrocytosis Not Reportable Spherocytes Not Reportable Pappenheimer Bodies Not Reportable Sickle Cells Not Reportable Target Cells Not Reportable Tear Drop Cells Not Reportable Ovalocytes Not Reportable Helmet Cells Not Reportable [place] Bodies Not Reportable [place] Rings Not Reportable [place] Cells Not Reportable Bite Cells Not Reportable Crenated Cell Not Reportable Elliptocytes Not Reportable Acanthocytes (Spur) Not Reportable Rouleaux Not Reportable Hemoglobin C Crystals Not Reportable Schistocytes Not Reportable Malaria parasites Not Reportable Juan C Bodies Not Reportable Hem Pathologist Commnt No Sodium 141 (137-145) mmol/L Potassium 3.7 (3.6-5.0) mmol/L Chloride 100.5 (98-107) mmol/L Carbon Dioxide 27 (22-30) mmol/L Anion Gap 17 mmol/L BUN 12 (7-17) mg/dL Creatinine 0.8 (0.7-1.2) mg/dL Estimated GFR > 60 ml/min BUN/Creatinine Ratio 15 % Glucose 95 (65-100) mg/dL Calcium 9.8 (8.4-10.2) mg/dL Total Bilirubin (0.1-1.2) mg/dL Direct Bilirubin (0-0.2) mg/dL Indirect Bilirubin mg/dL AST (5-40) units/L ALT (7-56) units/L Alkaline Phosphatase (35-129) units/L Troponin T (0.00-0.029) ng/mL Total Protein (6.3-8.2) g/dL Albumin (3.9-5) g/dL Albumin/Globulin Ratio % Urine Color Yellow (Yellow) Urine Turbidity Clear (Clear) Urine pH 5.0 (5.0-7.0) Ur Specific [place] 1.012 (1.003-1.030) Urine Protein 30 mg/dl (Negative) mg/dL Urine Glucose (UA) Neg (Negative) mg/dL Urine Ketones Neg (Negative) mg/dL Urine Blood Lg (Negative) Urine Nitrite Neg (Negative) Urine Bilirubin Neg (Negative) Urine Urobilinogen < 2.0 (<2.0) mg/dL Ur Leukocyte Esterase Tr (Negative) Urine WBC (Auto) < 1.0 (0.0-6.0) /HPF Urine RBC (Auto) 4.0 (0.0-6.0) /HPF U Epithel Cells (Auto) 15.0 H (0-13.0) /HPF Urine Bacteria (Auto) 2+ (Negative) /HPF Urine Mucus Few /HPF Urine HCG, Qual Negative (Negative) 04/13/17 04/14/17 Range/Units 23:25 00:01 WBC (4.5-11.0) K/mm3 RBC (3.65-5.03) M/mm3 Hgb (10.1-14.3) gm/dl Hct (30.3-42.9) % MCV (79-97) fl MCH (28-32) pg MCHC (30-34) % RDW (13.2-15.2) % Plt Count (140-440) K/mm3 Add Manual Diff Total Counted Seg Neuts % (Manual) (40.0-70.0) % Band Neutrophils % % Lymphocytes % (Manual) (13.4-35.0) % Reactive Lymphs % (Man) % Monocytes % (Manual) (0.0-7.3) % Eosinophils % (Manual) (0.0-4.3) % Basophils % (Manual) (0.0-1.8) % Metamyelocytes % % Myelocytes % % Promyelocytes % % Blast Cells % % Nucleated RBC % Seg Neutrophils # Man (1.8-7.7) K/mm3 Band Neutrophils # K/mm3 Lymphocytes # (Manual) (1.2-5.4) K/mm3 Abs React Lymphs (Man) K/mm3 Monocytes # (Manual) (0.0-0.8) K/mm3 Eosinophils # (Manual) (0.0-0.4) K/mm3 Basophils # (Manual) (0.0-0.1) K/mm3 Metamyelocytes # K/mm3 Myelocytes # K/mm3 Promyelocytes # K/mm3 Blast Cells # K/mm3 WBC Morphology Hypersegmented Neuts Hyposegmented Neuts Hypogranular Neuts Smudge Cells Toxic Granulation Toxic Vacuolation Dohle Bodies Pelger-Huet Anomaly Kal Rods Platelet Estimate Clumped Platelets Plt Clumps, EDTA Large Platelets Giant Platelets Platelet Satelliting Plt Morphology Comment RBC Morphology Dimorphic RBCs Polychromasia Hypochromasia Poikilocytosis Anisocytosis Microcytosis Macrocytosis Spherocytes Pappenheimer Bodies Sickle Cells Target Cells Tear Drop Cells Ovalocytes Helmet Cells [place] Bodies [place] Rings [place] Cells Bite Cells Crenated Cell Elliptocytes Acanthocytes (Spur) Rouleaux Hemoglobin C Crystals Schistocytes Malaria parasites Juan C Bodies Hem Pathologist Commnt Sodium (137-145) mmol/L Potassium (3.6-5.0) mmol/L Chloride (98-107) mmol/L Carbon Dioxide (22-30) mmol/L Anion Gap mmol/L BUN (7-17) mg/dL Creatinine (0.7-1.2) mg/dL Estimated GFR ml/min BUN/Creatinine Ratio % Glucose (65-100) mg/dL Calcium (8.4-10.2) mg/dL Total Bilirubin 0.20 (0.1-1.2) mg/dL Direct Bilirubin < 0.2 (0-0.2) mg/dL Indirect Bilirubin 0.0 mg/dL AST 12 (5-40) units/L ALT 9 (7-56) units/L Alkaline Phosphatase 90 (35-129) units/L Troponin T < 0.010 (0.00-0.029) ng/mL Total Protein 7.8 (6.3-8.2) g/dL Albumin 4.9 (3.9-5) g/dL Albumin/Globulin Ratio 1.7 % Urine Color (Yellow) Urine Turbidity (Clear) Urine pH (5.0-7.0) Ur Specific [place] (1.003-1.030) Urine Protein (Negative) mg/dL Urine Glucose (UA) (Negative) mg/dL Urine Ketones (Negative) mg/dL Urine Blood (Negative) Urine Nitrite (Negative) Urine Bilirubin (Negative) Urine Urobilinogen (<2.0) mg/dL Ur Leukocyte Esterase (Negative) Urine WBC (Auto) (0.0-6.0) /HPF Urine RBC (Auto) (0.0-6.0) /HPF U Epithel Cells (Auto) (0-13.0) /HPF Urine Bacteria (Auto) (Negative) /HPF Urine Mucus /HPF Urine HCG, Qual (Negative) - EKG Data -: EKG Interpreted by Me - EKG Data 04/14/17 00:35 Normal sinus, 65 bpm, normal axis, T-wave inversions in the anteroseptal leads, most likely suggestive of persistent juvenile T-wave inversion. No prior EKG available for comparison, high left ventricular voltages suggested, it is not morphologically with ST elevation myocardial infarction - Radiology Data Radiology results: image reviewed interpreted by me: X-ray of the chest is negative for acute disease - Medical Decision Making Differential diagnosis, including but not limited to: Elevated blood pressure, preeclampsia, myocarditis, pericarditis, pneumonia, costochondritis, interval fatigue Assessment and plan: 22-year-old female who is 2 months , not hypertensive in the ER, has minimal proteinuria, does not have lower extremity edema, no visual complaints, and does not have a transaminitis; this is not consistent with preeclampsia. Blood pressure has remained within normal limits in the ER. Has a GCS of 15 with an NIH score of 0. Playing on a cellular phone. No active vomiting or distress. Chest pain atypical, low risk by KATHERINE score, low risk by heart score , no pulmonary was or DVT risk factors, low risk by well's criteria, perc negative. 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 Patient is suitable to follow up with an outpatient functional manager for her atypical chest pain, chest discomfort has been present for 6 days and is intermittent, as per the [employer] clinical policy, myocardial infarction may be excluded with 1 set of troponins if symptoms have been present for greater than 8 hours. Critical care attestation.: If time is entered above; I have spent that time in minutes in the direct care of this critically ill patient, excluding procedure time. ED Disposition Clinical Impression: Abnormal EKG, Chest pressure Disposition: DC-01 TO HOME OR SELFCARE Is pt being admited?: No Does the pt Need Aspirin: No Condition: Stable Additional Instructions: Continue current outpatient medications. Although with the primary care doctor or functional manager within the next week for chest pressure and abnormal EKG. Abnormal EKG is most likely an appropriate variant for age and demographic background. However, it is very important to follow-up in outpatient primary care doctor or functional manager as recommended. Return to the ER right away with few pain, worsened pain, migration of pain, fevers, chills, lethargy, irritability, projectile vomiting, change in mental status, inability to tolerate liquid feeds. Referrals: FELIPE BYERS MD [Primary Care Provider] - 3-5 Days [facility] [Provider Group] - 3-5 Days [facility] [Provider Group] - 3-5 Days
[2017-04-13 23:45] LABS: Alanine Aminotransferase 9 units/L (7-56); Albumin 4.9 g/dL (3.9-5); Albumin/Globulin Ratio 1.7 %; Alkaline Phosphatase 90 units/L (35-129); Total Protein 7.8 g/dL (6.3-8.2)
[2017-04-13 23:52] LABS: Bilirubin,Direct < 0.2 mg/dL (0-0.2)
--- NOTE | 2017-04-14 10:22 | XRay Report ---
ROUTINE CHEST, TWO VIEWS: HISTORY: chest pain. The trachea, heart, mediastinal contour, lung escoto and bony thorax are unremarkable. IMPRESSION: Unremarkable chest x-ray.
== END 2017-04-14 00:45 | disposition home or self-care (01) ==
LOC: ED 17:01
DX: R07.89 Other chest pain (principal); R51 Headache; Z88.6 Allergy status to analgesic agent
CPT/HCPCS: 36415; 71020; 80048; 80074; 81001; 81025; 84484; 85007; 85025; 93005; 93010; 99284

== ENCOUNTER 2021-04-30 13:14 | Emergency (ER) | payer MEDICAID ==
--- NOTE | 2021-04-30 13:27 | Emergency Department Report ---
HPI - General Chief Complaint: Abdominal Pain Time Seen by Provider: 04/30/21 13:15 - HPI HPI: 26-year-old -[place] female presents to the emergency department with a complaint of "I had a miscarriage on the floor today." Patient began having vandana e pelvic cramping and mild vaginal bleeding 2 days ago. At that time she contacted her ASSOCIATE CIVIL ENGINEER who told her to go to the emergency department and she went to [facility]. She says that she had an ultrasound in which "they could not see the baby." Otherwise she says that she was not told any other information regarding age/gestation, hormone level, or any other lab values, if any were obtained. She was told to follow-up with her ASSOCIATE CIVIL ENGINEER and she says that she placed a call but was not yet called back. Today, about 2 hours ago, the patient says that she had a large amount of bleeding and expulsion of some tissue. With this the patient is G6, P5. She denies any other past medical history. She has not taken anything for symptoms prior to presentation today. ED Past Medical Hx - Past Medical History Hx Hypertension: No Hx CVA: No Hx Heart Attack/AMI: No Hx Congestive Heart Failure: No Hx Diabetes: No Hx Deep Vein Thrombosis: No Hx Renal Disease: No Hx Sickle Cell Disease: No Hx Seizures: No Hx Kidney Stones: No Hx Psychiatric Treatment: No Hx Asthma: No Hx COPD: No Hx Dementia: No Hx HIV: No Additional medical history: vaginal delivery x 3, x 1 - Surgical History Additional Surgical History: tonsilectomy - Social History Smoking Status: Never Smoker Substance Use Type: None - Medications Home Medications: Home Medications Medication Instructions Recorded Confirmed Last Taken Type Vit-Fe Fumar-FA [ 1 tab PO QDAY 11/08/16 02/10/17 11/07/16 H istory Vitamin] Docusate Sodium [Colace] 100 mg PO BID PRN #60 capsule 02/10/17 Unknown Rx Ferrous Sulfate [Feosol 325 MG tab] 325 mg PO TID #90 tablet 02/10/17 Unknown Rx HYDROcodone/APAP 5-325 [[place] 1 each PO Q6HR PRN #30 tablet 02/10/17 Unknown Rx 5/325] Ibuprofen [Motrin] 800 mg PO Q8HR PRN #30 tablet 02/10/17 Unknown Rx labetaloL [Labetalol 200mg TAB] 200 mg PO BID #60 tablet 02/11/17 Unknown Rx oxyCODONE /ACETAMINOPHEN [Percocet 1 tab PO Q6HR PRN #30 tablet 02/11/17 Unknown Rx 5/325] ED Review of Systems ROS: Stated complaint: Abdominal pain Other details as noted in HPI Comment: All other systems reviewed and negative Constitutional: denies: chills, fever Eyes: denies: eye pain, vision change ENT: denies: ear pain, throat pain Respiratory: denies: cough, shortness of breath Cardiovascular: denies: chest pain, palpitations Gastrointestinal: abdominal pain. denies: vomiting Genitourinary: other (Vaginal bleeding). denies: dysuria, discharge Musculoskeletal: denies: back pain, arthralgia Skin: denies: rash, lesions Neurological: denies: headache, weakness Physical Exam - Physical Exam Vital Signs: Vital Signs 04/30/21 13:23 Pulse Rate 86 Respiratory 14 Rate Physical Exam: GENERAL: The patient is well-developed well-nourished. HENT: Normocephalic. Atraumatic. Patient has moist mucous membranes. EYES: Extraocular motions are intact. NECK: Supple. Trachea is midline. CHEST/LUNGS: Clear to auscultation. There is no respiratory distress noted. HEART/CARDIOVASCULAR: Regular. There is no tachycardia. There is no murmur. ABDOMEN: Abdomen is soft, nontender. Patient has normal bowel sounds. SKIN: Skin is warm and dry. NEURO: The patient is awake, alert, and oriented. The patient is cooperative. The patient has no focal neurologic deficits. Normal speech. MUSCULOSKELETAL: There is no tenderness or deformity. There is no limitation range of motion. PELVIC: There is a large amount of maroon and dark blood, with clots, seen in the vagina. ED Course Vital Signs 04/30/21 13:23 Pulse Rate 86 Respiratory 14 Rate - Reevaluation(s) Reevaluation #1: 04/30/21 15:44 Just as the patient got to ultrasound, patient appeared to pass out and have some seizure-like activity. By the time we arrived to the ultrasound room, the patient was awake, crying, and possibly confused, but was awake, talking without slurred speech, and seen moving all extremities. She will be brought back to her room in the emergency department. We will get a portable ultrasound while placing her on the bus driver/monitor. I have placed for a repeat H&H, TSH level and an EKG. Reevaluation #2: 04/30/21 15:56 A few of the labs just say "pending" but have been completed. I am unable to get into crossover so I have the written report. Sodium is 138, potassium is 3.8, and chloride is 104. She has an anion gap of 17. Reevaluation #3: 04/30/21 19:33 Pelvic examination was done with SPARKLE Anthony at bedside to yeast pumper and assist. - Consultations Consultation #1: 04/30/21 18:57 I spoke to the ASSOCIATE CIVIL ENGINEER on-call, Dr. Reynolds. We discussed the patient's presentation, lab and imaging results. She has recommended that a pelvic examination be done to try and clear any further vaginal clots and assess the bleeding. After that, the patient should be given 800 mg of Cytotec per rectum and the patient can follow-up with her ASSOCIATE CIVIL ENGINEER. ED Medical Decision Making - Lab Data Result diagrams: 04/30/21 16:19 04/30/21 13:38 Lab Results 04/30/21 04/30/21 04/30/21 Range/Units 13:38 13:38 13:38 WBC 7.2 (4.5-11.0) K/mm3 RBC 3.88 (3.65-5.03) M/mm3 Hgb 11.2 (10.1-14.3) gm/dl Hct 33.9 (30.3-42.9) % MCV 87 (79-97) fl MCH 29 (28-32) pg MCHC 33 (30-34) % RDW 14.0 (13.2-15.2) % Plt Count 272 (140-440) K/mm3 Lymph % (Auto) 9.7 L (13.4-35.0) % [place] % (Auto) 6.4 (0.0-7.3) % Eos % (Auto) 1.3 (0.0-4.3) % Baso % (Auto) 2.9 H (0.0-1.8) % Lymph # (Auto) 0.7 L (1.2-5.4) K/mm3 [place] # (Auto) 0.5 (0.0-0.8) K/mm3 Eos # (Auto) 0.1 (0.0-0.4) K/mm3 Baso # (Auto) 0.2 H (0.0-0.1) K/mm3 Seg Neutrophils % 79.7 H (40.0-70.0) % Seg Neutrophils # 5.7 (1.8-7.7) K/mm3 Carbon Dioxide 21 L (22-30) mmol/L BUN 10 (7-17) mg/dL Creatinine 0.7 (0.6-1.2) mg/dL Estimated GFR > 60 ml/min BUN/Creatinine Ratio 14 % Glucose 100 (65-100) mg/dL Calcium 8.6 (8.4-10.2) mg/dL TSH (0.270-4.200) mlU/mL HCG, Quant 1528 H (0-4) mIU/mL Blood Type Antibody Screen Ord Rhogam Gestat Weeks WEEKS 04/30/21 04/30/21 04/30/21 Range/Units 13:38 15:43 16:19 WBC (4.5-11.0) K/mm3 RBC (3.65-5.03) M/mm3 Hgb 9.8 L (10.1-14.3) gm/dl Hct 30.4 (30.3-42.9) % MCV (79-97) fl MCH (28-32) pg MCHC (30-34) % RDW (13.2-15.2) % Plt Count (140-440) K/mm3 Lymph % (Auto) (13.4-35.0) % [place] % (Auto) (0.0-7.3) % Eos % (Auto) (0.0-4.3) % Baso % (Auto) (0.0-1.8) % Lymph # (Auto) (1.2-5.4) K/mm3 [place] # (Auto) (0.0-0.8) K/mm3 Eos # (Auto) (0.0-0.4) K/mm3 Baso # (Auto) (0.0-0.1) K/mm3 Seg Neutrophils % (40.0-70.0) % Seg Neutrophils # (1.8-7.7) K/mm3 Carbon Dioxide (22-30) mmol/L BUN (7-17) mg/dL Creatinine (0.6-1.2) mg/dL Estimated GFR ml/min BUN/Creatinine Ratio % Glucose (65-100) mg/dL Calcium (8.4-10.2) mg/dL TSH 0.441 (0.270-4.200) mlU/mL HCG, Quant (0-4) mIU/mL Blood Type O POSITIVE Antibody Screen Ord Rhogam Gestat Weeks Rh pos WEEKS 04/30/21 Range/Units 16:19 WBC (4.5-11.0) K/mm3 RBC (3.65-5.03) M/mm3 Hgb (10.1-14.3) gm/dl Hct (30.3-42.9) % MCV (79-97) fl MCH (28-32) pg MCHC (30-34) % RDW (13.2-15.2) % Plt Count (140-440) K/mm3 Lymph % (Auto) (13.4-35.0) % [place] % (Auto) (0.0-7.3) % Eos % (Auto) (0.0-4.3) % Baso % (Auto) (0.0-1.8) % Lymph # (Auto) (1.2-5.4) K/mm3 [place] # (Auto) (0.0-0.8) K/mm3 Eos # (Auto) (0.0-0.4) K/mm3 Baso # (Auto) (0.0-0.1) K/mm3 Seg Neutrophils % (40.0-70.0) % Seg Neutrophils # (1.8-7.7) K/mm3 Carbon Dioxide (22-30) mmol/L BUN (7-17) mg/dL Creatinine (0.6-1.2) mg/dL Estimated GFR ml/min BUN/Creatinine Ratio % Glucose (65-100) mg/dL Calcium (8.4-10.2) mg/dL TSH (0.270-4.200) mlU/mL HCG, Quant (0-4) mIU/mL Blood Type O POSITIVE Antibody Screen Negative Ord Rhogam Gestat Weeks WEEKS - Radiology Data Radiology results: report reviewed ULTRASOUND PELVIS INDICATION: , vaginal bleeding. TECHNIQUE: Transabdominal. Duplex Color Doppler used: Yes. COMPARISON: None available FIN DINGS: Uterus: Present. Size: 12 x 5.2 x 7.5 cm. Endometrial complex: Possible early gestational sac lower uterine segment. This measures 2.1 x 0.4 x 1.3 cm. No pole or yolk sac. Mass lesions: Solid lesion lower uterine segment measuring 4.2 x 5.5 x 2.9 cm. Additional findings: None. Right Ovary -- Normal. Blood flow: Normal. Cyst or mass: None. Left Ovary-- Normal. Blood flow: Normal. Cyst or mass: None. Urinary Bladder: Normal. Free Fluid: None. Additional Findings: None. IMPRESSION: 1. Possible early gestational sac. 2. Solid lesion lower uterine segment. This may represent a fibroid. 3. No adnexal abnormality. - Medical Decision Making This patient presents to the emergency department with vaginal bleeding and pelvic cramping and concern for a miscarriage. She had an ultrasound done at [facility] and was told that there was no visualization of a fetus. The patient had an ultrasound done in early February at [facility] ASSOCIATE CIVIL ENGINEER that told her that she was about 5 weeks gestation at that time. Therefore her estimate of 11 or 12 weeks gestation sounds correct. Patient's hemoglobin is 11.2. Her beta hCG came back at about 1500. Patient was taken for ultrasound but upon arrival to the ultrasound room the patient had a syncopal episode. She was awake and alert in the time that it took us to respond to their page. She was brought back to the emergency department and they did a bedside ultrasound that shows a possible early gestational sac but otherwise no yolk sac or pole, and the patient appears to have a fibroid. Given the syncopal episode, I rechecked the patient's hemoglobin and it dropped down to 9.8. I also checked a thyroid function which appears normal. I spoke with the ASSOCIATE CIVIL ENGINEER on-call who recommended a pelvic examination and then Cytotec. On pelvic examination the patient has a large amount of dark/maroon blood with clots. However the patient has been reevaluated multiple times and appears improved from since the syncopal episode. She is awake, alert, jovial and asking for food. She will be discharged home after the Cytotec, and testing her with ambulation and the patient will follow up with her ASSOCIATE CIVIL ENGINEER on Sunday. Patient was seen ambulatory upon discharge in the emergency department and both appears and feels stable. Critical Care Time: No Critical care attestation.: If time is entered above; I have spent that time in minutes in the direct care of this critically ill patient, excluding procedure time. ED Disposition Clinical Impression: Spontaneous miscarriage Disposition: 01 HOME / SELF CARE / HOMELESS Is pt being admited?: No Condition: Stable Instructions: Miscarriage, Abdominal Pain (ED) Referrals: OBGYN, Your [Other] - 05/02/21 Time of Disposition: 19:33
[2021-04-30 14:04] LABS: Basophils # (Auto) 0.2 K/mm3 (0.0-0.1); Basophils % (Auto) 2.9 % (0.0-1.8); Eosinophils # (Auto) 0.1 K/mm3 (0.0-0.4); Eosinophils % (Auto) 1.3 % (0.0-4.3); Hematocrit 33.9 % (30.3-42.9); Hemoglobin 11.2 gm/dl (10.1-14.3); Lymphocytes # (Auto) 0.7 K/mm3 (1.2-5.4); Lymphocytes % (Auto) 9.7 % (13.4-35.0); Mean Corpuscular HGB Conc 33 % (30-34); Mean Corpuscular Volume 87 fl (79-97); Monocytes # (Auto) 0.5 K/mm3 (0.0-0.8); Monocytes % (Auto) 6.4 % (0.0-7.3); Platelet Count 272 K/mm3 (140-440); Red Blood Count 3.88 M/mm3 (3.65-5.03)
[2021-04-30 14:18] LABS: Blood Urea Nitrogen 10 mg/dL (7-17); Calcium 8.6 mg/dL (8.4-10.2); Hemolysis Index 7
[2021-04-30 14:20] LABS: BUN/Creatinine Ratio 14
[2021-04-30] MEDS ORDERED: ACETAMINOPHEN 325 MG TAB PO ONE (15:22)
[2021-04-30] MEDS ORDERED: SODIUM CHLORIDE 0.9% 1000 ML 1,000 ML ONE (15:48)
[2021-04-30 16:52] LABS: Hematocrit 30.4 % (30.3-42.9); Hemoglobin 9.8 gm/dl (10.1-14.3)
--- NOTE | 2021-04-30 17:24 | Ultrasound Report ---
ULTRASOUND PELVIS INDICATION: , vaginal bleeding. TECHNIQUE: Transabdominal. Duplex Color Doppler used: Yes. COMPARISON: None available FINDINGS: Uterus: Present. Size: 12 x 5.2 x 7.5 cm. Endometrial complex: Possible early gestational sac lower uterine segment. This measures 2.1 x 0.4 x 1.3 cm. No pole or yolk sac. Mass lesions: Solid lesion lower uterine segment measuring 4.2 x 5.5 x 2.9 cm. Additional findings: None. Right Ovary -- Normal. Blood flow: Normal. Cyst or mass: None. Left Ovary-- Normal. Blood flow: Normal. Cyst or mass: None. Urinary Bladder: Normal. Free Fluid: None. Additional Findings: None. IMPRESSION: 1. Possible early gestational sac. 2. Solid lesion lower uterine segment. This may represent a fibroid. 3. No adnexal abnormality. Signer Name: Sathya Gtz MD Signed: 04/30/2021 5:19 PM Workstation Name: [id number]
[2021-04-30 17:34] VITALS: BP 115/74
[2021-04-30] MEDS ORDERED: SODIUM CHLORIDE 0.9% 1000 ML 1,000 ML IV ONE (17:34)
[2021-04-30] MEDS ORDERED: miSOPROStol 200 MCG TAB PR ONE (18:24)
== END 2021-04-30 22:00 | disposition home or self-care (01) ==
LOC: ED 13:14
DX: O03.9 Complete or unspecified spontaneous abortion without complication (principal); Z98.890 Other specified postprocedural states; Z88.5 Allergy status to narcotic agent
CPT/HCPCS: 36415; 76801; 80048; 84443; 84702; 85014; 85018; 85025; 86850; 86900; 86901; 96360; 99284; J7030; Q0162

== ENCOUNTER 2021-08-14 21:43 | Emergency (ER) | payer MEDICAID ==
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
[2021-08-15 06:11] LABS: Bilirubin,Urine NEG (Negative); Blood,Urine NEG (Negative); Color,Urine Yellow (Yellow); Mucus,Urine FEW /HPF; Protein,Urine <15 mg/dL mg/dL (Negative); Urobilinogen,Urine < 2.0 mg/dL (<2.0)
[2021-08-15 06:12] LABS: HCG Qualitative,Urine Negative (Negative)
--- NOTE | 2021-08-15 09:04 | Cat Scan Report ---
CT HEAD WITHOUT CONTRAST INDICATION / CLINICAL INFORMATION: headache. TECHNIQUE: Axial imaging performed from the skull apex through the skull base without the use of cont rast. Sagittal and coronal reformatted images. All CT scans at this location are performed using CT dose reduction for ALARA by means of automated exposure control. COMPARISON: None available. FINDINGS: CEREBRAL PARENCHYMA: No significant abnormality. No acute territorial infarct. HEMORRHAGE: None. EXTRA-AXIAL SPACES: Normal in size and morphology for the patient's age. VENTRICULAR SYSTEM: Normal in size and morphology for the patient's age. MIDLINE SHIFT OR HERNIATION: None. CEREBELLUM / BRAINSTEM: No significant abnormality. CALVARIUM: No significant abnormality. ORBITS: Normal as visualized. PARANASAL SINUSES / MASTOID AIR CELLS: Normal as visualized. SOFT TISSUES of HEAD: No significant abnormality. ADDITIONAL FINDINGS: None. IMPRESSION: No acute intracranial abnormality. Signer Name: Luis M Stinson Jr, MD Signed: 08/15/2021 9:00 AM Workstation Name: [id number]
[2021-08-15 09:31] VITALS: BP 126/81
[2021-08-15] MEDS ORDERED: KETOROLAC 10 MG TAB PO ONE (09:40)
== END 2021-08-15 10:11 | disposition home or self-care (01) ==
LOC: ED 21:43
DX: R51.9 Headache, unspecified (principal); Z91.09 Other allergy status, other than to drugs and biological substances; Y08.89XA Assault by other specified means, initial encounter; Y93.89 Activity, other specified; Y92.89 Other specified places as the place of occurrence of the external cause; Y99.8 Other external cause status; S09.8XXA Other specified injuries of head, initial encounter
CPT/HCPCS: 70450; 81001; 81025; 87086; 99284